=== PATIENT | male | born 1985 | race Caucasian/White ===

== ENCOUNTER 2019-05-11 06:40 | Day surgery (SDC) | payer OTHER ==
[2019-05-05 15:26] VITALS: BMI 28.8
[~2019-05-11 06:40] MED LIST: DEXAMETHASONE SOD PHOSPHATE 10 MG/ML 1 ML VIAL IV ONE; HEPARIN SODIUM,PORCINE 5,000 UNIT/ML 1 ML VIAL SQ ONE; KETOROLAC 30 MG/ML 1 ML VIAL IVP SCH; LACTATED RINGERS 1,000 ML IV SCH; LIDOCAINE 1% 20 ML VIAL (10MG/ML) FOR IV START INTRADERMA PRN; ONDANSETRON 4 MG/2 ML VIAL IVP ONE; ONDANSETRON 4 MG/2 ML VIAL IVP PRN; metroNIDAZOLE-NS PMX 500 MG in SALINE 1 100ML.BAG IVPB ONE
[2019-05-11] MEDS ORDERED: FAMOTIDINE 20 MG/2 ML VIAL IV STA (07:02)
[2019-05-11 07:05] VITALS: RESP 16; TEMP 97.2
[2019-05-11] MEDS ORDERED: GLYCOPYRROLATE 0.2 MG/ML 2 ML VIAL ONE (07:55)
[2019-05-11] MEDS ORDERED: diphenhydrAMINE 50 MG/ML 1 ML VIAL ONE (07:55)
[2019-05-11] MEDS ORDERED: fentaNYL (PF) 50 MCG/ML 2 ML AMP ONE (07:55)
[2019-05-11] MEDS ORDERED: MIDAZOLAM 2 MG/2 ML VIAL ONE (07:55)
[2019-05-11] MEDS ORDERED: LIDOCAINE 1% INJ 10MG/ML (20 ML MDV) ONE (07:55)
[2019-05-11] MEDS ORDERED: PROPOFOL 10 MG/ML 20 ML VIAL IV ONE (07:55)
[2019-05-11] MEDS ORDERED: KETAMINE 10 MG/ML 20 ML VIAL ONE (07:55)
--- NOTE | 2019-05-11 08:02 | P.GSHP ---
History of Present Illness H&P Date: 05/11/19 Chief Complaint: Pilonidal cyst This a 33-year-old male who presents today for excision of pilonidal cyst. Patient is a chronic issues with pain inflammation of the pilonidal cyst. Patient aware the risks of surgery. He also understands that the wound will be packed postoperatively. Past Medical History Additional Past Medical History / Comment(s): pilinodal cyst History of Any Multi-Drug Resistant Organisms: None Reported Past Surgical History: Cholecystectomy, Orthopedic Surgery Additional Past Surgical History / Comment(s): left thumb sx, rt leg sx with metal Past Anesthesia/Blood Transfusion Reactions: No Reported Reaction Smoking Status: Current every day smoker - Past Family History Mother Family Medical History: No Reported History Medications and Allergies Home Medications Medication Instructions Recorded Confirmed Type No Known Home Medications 05/05/19 05/11/19 History Allergies Allergy/AdvReac Type Severity Reaction Status Date / Time No Known Allergies Allergy Verified 05/11/19 06:52 Surgical - Exam Vital Signs Temp Pulse Resp BP Pulse Ox 97.2 F L 71 16 125/65 94 L 05/11/19 07:04 05/11/19 07:04 05/11/19 07:04 05/11/19 07:04 05/11/19 07:04 - General well developed, well nourished, no distress - Eyes PERRL - ENT normal pinna - Neck no masses - Respiratory normal expansion - Cardiovascular Rhythm: regular - Abdomen Abdomen: soft, non tender - Integumentary Pilonidal cyst with evidence of chronic inflammation Assessment and Plan Assessment: Chronic pilonidal cyst. We'll perform excision.
[2019-05-11] MEDS ORDERED: BUPIVACAINE (PF) 0.25% 30 ML VIAL SQ ONE ×3 (08:18→08:27)
[2019-05-11] MEDS: HYDROmorphone 0.5 MG/0.5 ML SYRINGE IVP PRN ×2 (09:00→09:17)
--- NOTE | 2019-05-11 09:18 | P.OP ---
Date of Procedure: 05/11/19 Preoperative Diagnosis: Pilonidal cyst Postoperative Diagnosis: Pilonidal cyst Procedure(s) Performed: Excision of pilonidal cyst Anesthesia: MAC Surgeon: Lon Encarnacion Estimated Blood Loss (ml): 5 Pathology: other (Prognosis) Condition: stable Disposition: PACU Description of Procedure: The patient's placed on the operative table in the prone position. He received IV sedation. The area the prognosis was a 71% local Xylocaine. Using an elliptical skin incision, the cyst excised large cautery Harmonic scissors the subcutaneous fat was dissected free. The pilonidal cyst was sent to pathology. The wound was packed with wet-to-dry Kerlix. Patient tolerated procedure well was sent to recovery room in stable condition.
[2019-05-11] MEDS ORDERED: HYDROcodone/APAP 5-325MG 1 EACH TAB PO ONE ×2 (09:28)
[2019-05-11 09:49] VITALS: BP 131/72; PULSE 61
== END 2019-05-11 10:12 | disposition home or self-care (01) ==
LOC: OR 06:40
PROVIDERS: ATTEND Surgery
DX: L05.01 Pilonidal cyst with abscess (principal); K21.9 Gastro-esophageal reflux disease without esophagitis; Z90.49 Acquired absence of other specified parts of digestive tract; F17.200 Nicotine dependence, unspecified, uncomplicated
CPT/HCPCS: 88304; 11770; J2250; J1200; J1100; J0690; J2405; J2001; J3010; J2704; J1170